=== PATIENT | male | born 1985 | race Caucasian/White ===

== ENCOUNTER 2025-04-18 19:37 | Emergency (ER) | payer BC, SELFPAY ==
--- OUTSIDE RECORDS SUMMARY | 2025-04-18 19:44 | XMS_ITS | Clinical Summary ---
Author Organization [facility] Address [address] [place] [id number] Care Team Providers Care Weigher Alloy Name Role Phone Nicole Pollard MD Primary Care Provider + Allergies No known active allergies Medications No known medications Active Problems Problem Noted Date Diagnosed Date Allergic rhinitis 12/24/2023 Immunizations Immunization Administration Dates Next Due Hepatitis A (Havrix [address]) 09/09/2011,2010 Influenza (FluMist) 02/19/2011 Influenza (Generic) 03/21/2014 Meningococcal (Menactra) 02/19/2011 Polio IPV (Ipol) 02/19/2011 Tdap (Boostrix) 12/24/2023 Tdap (Generic) 02/19/2011 Typhoid (Typhim ) 07/29/2011 Family History Medical History Relation Comments No Known Problems Brother Hyperlipidemia Father No Known Problems Mother No Known Problems Sister Relation Status Comments Brother Alive Father Alive Mother Alive Sister Alive Social History Tobacco Use Types Packs/Day Years Used Date Smoking Tobacco: Never Smokeless Tobacco: Never Alcohol Use Standard Drinks/Week Comments Yes 4 (1 standard drink = 0.6 oz pur e alcohol) Sex and Gender Information Value Date Recorded Sex Assigned at Not on file Legal Sex Male 7:16 PM CDT Gender Identity Not on file Sexual Orientation Not on file Last Filed Vital Signs Vital Sign Reading Time Taken Comments Blood Pressure 131/76 12/24/2023 10:08 AM CDT Pulse 79 12/24/2023 10:08 AM CDT Temperature 36.6 C (97.9 F) 12/24/2023 10:08 AM CDT Respiratory Rate 18 12/24/2023 10:08 AM CDT Oxygen Saturation 98% 12/24/2023 10:08 AM CDT Inhaled Oxygen Concentration - - Weight 102 kg (224 lb 12.8 oz) 12/24/2023 10:08 AM CDT Height 188 cm (6' 2) 12/24/2023 10:08 AM CDT Body Mass Index 28.86 12/24/2023 10:08 AM CDT Plan of Treatment Health Maintenance Due Date Last Done Comments Hepatitis C 2002 Hepatitis B Vaccines (1 of 3 - 19+ 3-dose series) 2003 HPV Vaccines (1 - 3-dose SCD M series) 2011 PHQ-2 (Physician [place]) 06/21/2024 Annual Physical 12/23/2024 12/24/2023 COVID-19 Vaccine ( - 2024-2 6 season) 2025 Influenza Adult (#1) 2025 03/21/2014, 02/19/2011 DTaP, Tdap and Td Vaccines ( 3 - Td or Tdap) 12/23/2033 12/24/2023, 02/19/2011 Meningococcal Vaccine Aged Out 02/19/2011 No neftali abhijit eligible based on patient's age to complete this topic Hepatitis A Vaccines Aged Out 09/09/2011, 02/19/2011 No longer eligible based on patient's age to complete this topic Meningococcal B Vaccine Aged Out No l onger eligible based on patient's age to complete this topic Pneumococcal Vaccine: Pediatrics (0 to 5 Years) and At-Risk Patients (6 to 49 Years) Aged Out No longer eligible b ased on patient's age to complete this topic RSV Immunizations Under 20 Months Aged Out No longer eligible b ased on patient's age to complete this topic Insurance [employer] Member Subscriber Plan / Payer (Ef fective 2021-Present) Name:Shaheed Lau Relation to Subscriber:Self Name:Shaheed Lau Payer ID:Not on file Group ID:Not on file Type:Not on file Address: [address] Care Teams Weigher Alloy Relationship Specialty Start Date End Date Nicole Pollard MD [address] [address] PCP - General FAMILY PRACTICE 12/24/23
[2025-04-18 19:45] VITALS: BP 133/97; PULSE 71; RESP 16; TEMP 36.4; O2SAT 100
[2025-04-18 19:59] LABS: EDUAAPPEAR Clear; EDUABILI Negative (Negative); EDUABLOOD Trace (Negative); EDUACOLOR1 Yellow; EDUAGLUCOSE Negative (Negative); EDUAKETONE Negative (Negative); EDUALEUKO Trace (Negative); EDUANITRATE Negative (Negative); EDUAPH 5.5; EDUAPROTEIN 2+ (Negative); EDUASPGRAVITY 1.030; EDUAUROBILI 0.2
--- NOTE | 2025-04-18 20:05 | ED_ITS ---
HPI - Male Genitourinary General Chief complaint: Urogenital-Male Stated complaint: UTI Time Seen by Provider: 04/18/25 19:50 Source: patient and RN notes reviewed Mode of arrival: ambulatory Limitations: no limitations History of Present Illness HPI Narrative: 39-year-old male patient presents to the [facility] complaining of possible UTI and concerns for STDs. Patient recently unprotected sex and oral sex 2 weeks ago. Does not patient reports increased frequency and lower abdominal pain. Patient has a dysuria, penile discharge, testicular pain or swelling, scrotal pain swelling, abnormal rashes lumps or lesions, fevers, body aches, chills, nausea vomiting, flank pain, back pain, or any other symptoms. Patient denies any significant past medical history. Patient has not tried any [id number] help with symptoms. Patient reports he is circumcised. Related Data Allergies Allergy/AdvReac Type Severity Reaction Status Date / Time No Known Allergies Allergy Verified 04/18/25 19:51 Review of Systems Review of Systems: CONSTITUTIONAL: Denies fever, chills, body aches, or sweats. EYES: Denies visual changes, redness, or discharge. ENT: Denies rhinorrhea, congestion, sore throat, or otalgia. CARDIOVASCULAR: Denies chest pain, palpitations, or edema. RESPIRATORY: Denies cough or dyspnea. GASTROINTESTINAL: Positive for lower abdominal pain. Negative for nausea, vomiting, or diarrhea. GENITOURINARY: Positive for increased frequency. Negative for hematuria dysuria, penile discharge, testicular pain or swelling, scrotal pain or swelling,. SKIN: Denies rash or itching. MUSCULOSKELETAL: Denies back pain, flank pain, joint pain, or myalgia. NEUROLOGIC: Denies headache, numbness, or weakness. PSYCHIATRIC: Denies anxiety or depression. All other systems reviewed are negative, except as documented in HPI. PMFSH Comments At the time of my signature, I reviewed and agree with the nursing past medical, surgical, social, and family history. There is no relevant family history pertinent to the patient complaint. Exam Narrative: GENERAL: This is a well-nourished, well-developed adult, in no apparent distress. They are non ill-appearing, nontoxic appearing. HEAD: normocephalic, atraumatic. EYES: Sclera clear/white. Vision is grossly intact. Conjunctiva normal bilaterally. Extraocular movements intact. EARS: External ears normal,Hearing grossly intact. NOSE: External nose normal THROAT: Mucous membranes moist NECK: Normal range of motion CARDIOVASCULAR: Regular rate and rhythm. Normal S1-S2. No clicks, gallops, rubs, murmurs. RESPIRATORY: Respiratory rate normal, respiratory effort nonlabored, no respiratory distress. Lung sounds clear to auscultation throughout. Lung sounds equal bilaterally. No adventitious lung sounds. GASTROINTESTINAL: Abdomen soft, flat, non-tender, nondistended. Bowel sounds are active. No hepato-splenomegaly, or palpable masses. No guarding or rigidity. No rebound tenderness. GENITOURINARY: Patient declined SKIN: warm, Dry, intact with no suspicious lesions or rash, good texture and turgor. NEURO: awake, alert, and oriented to person, place and time. There were no obvious focal neurologic abnormalities. EXTREMITIES: No joint tenderness, effusion, or edema noted. BACK: Nontender without deformity. No CVA tenderness. Course Course Emergency Course: Portions of this record may have been created with voice recognition software Level of Care: Express Care Visit Vital Signs Vital signs: Vital Signs Temperature 97.5 F L 04/18/25 19:45 Pulse Rate 71 04/18/25 19:45 Respiratory Rate 16 04/18/25 19:45 Blood Pressure 133/97 H 04/18/25 19:45 Pulse Oximetry 100 04/18/25 19:45 Oxygen Delivery Room Air 04/18/25 19:45 Temperature 97.5 F L 04/18/25 19:45 Pulse Rate 71 04/18/25 19:45 Respiratory Rate 16 04/18/25 19:45 Blood Pressure 133/97 H 04/18/25 19:45 Pulse Oximetry 100 04/18/25 19:45 Oxygen Delivery Room Air 04/18/25 19:45 MDM - Male Genitourinary MDM Narrative Medical decision making narrative: Urine dipstick with 1+ leukocytes and trace blood. Patient symptoms are suspicious for UTI. Urine culture pending. Urine chlamydia, gonorrhea, Trichomonas are pending. Patient is having no discharge, penile pain, testicle or scrotal pain/swelling, no suspicious lesions or rashes to his genitals. No peritoneal findings, no abdominal tenderness. Go ahead and treat empirically with Bactrim for UTI will wait for treatment for STDs until cultures result. Discussed physical exam findings. Advised supportive measures and signs/symptoms to go to the ER. Pt is appropriate for outpt treatment and f/u. Differential Diagnosis Differential diagnosis: Likely urinary tract infection, urethritis and other (STD) Lab Data Attestation: I reviewed the patient's lab results. Labs: Lab Results 04/18/25 Range/Units 19:47 POC Urine Color Yellow POC Urine Clarity Clear POC Urine pH 5.5 POC Ur Specif [place] 1.030 POC Urine Protein 2+ (Negative) POC Ur Glucose (UA) Negative (Negative) POC Urine Ketones Negative (Negative) POC Urine Blood Trace (Negative) POC Urine Nitrite Negative (Negative) POC Urine Bilirubin Negative (Negative) POC Urine Urobilinogen 0.2 POC U Leukocyte Esteras Trace (Negative) Discharge Plan Discharge Clinical Impression: Concern about STD in male without diagnosis Urinary tract infection Qualifiers: Urinary tract infection type: site unspecified Hematuria presence: with hematuria Qualified Code(s): N39.0 - Urinary tract infection, site not specified Patient Disposition: Home Condition: Stable Instructions: Antibiotic Form, Sexually Transmitted Diseases (ED), Urinary Tract Infection in Men (ED) Additional Instructions: ?Your urine sample has been sent off to test for gonorrhea, chlamydia, and trichomonas infections. ?These tests can take up to 1-3 days to come back. You Will be notified the results once they have resulted. Please remain abstinent until you know your results or have completed full treatment for an STD. Take the antibiotic as prescribed The urine will be sent of for a culture to identify what type of bacteria is causing your infection. If the culture shows that the antibiotic will not get rid of your infection, you will be notified and a new antibiotic will be called in for you. Increase water intake you will need to follow up with your PCP 3-5 days. Go to the ER for any worsening symptoms, abdominal pain, fevers, testicular pain or swelling, nausea, vomiting, or any other concerns Patient Language: Turkmen Prescriptions: New sulfamethoxazole-trimethoprim [Bactrim DS] 800-160 mg tablet 1 tablet PO Q12H 7 Days Qty: 14 0RF Follow-up/Referrals: UNKNOWN,DOCTOR [Primary Care Provider] Time of Disposition: 20:04
[2025-04-19 20:18] LABS: Trichomonas Vag PCR NOT DETECTED (NOT DETECTE)
== END 2025-04-18 20:07 | disposition home or self-care (01) ==
DX: N39.0 Urinary tract infection, site not specified (principal); Z20.2 Contact with and (suspected) exposure to infections with a predominantly sexual mode of transmission
CPT/HCPCS: 81003; 87086; 87491; 87591; 87661; 99203; G0463

== ENCOUNTER 2025-05-07 13:50 | Outpatient (CLI) | payer BC, SELFPAY ==
--- NOTE | ~2025-05-07 | US_ITS ---
EXAMINATION: High resolution ultrasound scrotum with Doppler: DATE: 05/07/2025. INDICATION: Left scrotal pain. Left inguinal pain. No history of trauma. TECHNIQUE: High resolution ultrasound of the scrotum including the groin was performed with Doppler. COMPARISON: None. FINDINGS: No intratesticular lesions are seen at this side. Normal and symmetric color flow is noted on both sides. No extratesticular masses are seen. No hydrocele is seen. No scrotal wall abnormalities are seen. Ultrasound examination of the groins revealing no evidence of lymphadenopathy or aneurysm. IMPRESSION: 1. No ultrasound abnormalities of the testes. Normal perfusion of both testes. 2. No evidence of extratesticular mass. No evidence of hydrocele. 3. No inguinal adenopathy of space occupying lesions in the groins. Reviewed, dictated and finalized at location [facility]. [facility]
--- NOTE | ~2025-05-07 | CT_ITS ---
EXAM/PROCEDURE: CT abdomen pelvis wo con HISTORY: testicular pain / lower abd pain COMPARISON: None available. TECHNIQUE: Noncontrast CT of the abdomen and pelvis FINDINGS: The visualized portions of the lower chest appear normal. The bowel gas pattern is nonobstructive with no free air free fluid or pneumatosis seen. No bulky mesenteric or retroperitoneal lymphadenopathy or masses. Scattered nonpathologic sized mesenteric lymph nodes are present especially in the right lower quadrant. Appendix aorta and gallbladder all within normal size. No gross CT evidence of acute pancreatitis or cholecystitis. No hydroureteronephrosis. No urolithiasis seen. Urinary bladder appears grossly normal for technique. Slightly enlarged appearance of the prostate gland. Stomach is unopacified and nondistended but appears grossly normal. Approximately 15% chronic appearing anterior compression fracture of L2. Mild multilevel degenerative changes throughout the lumbar spine. Extra peritoneal soft tissues are unremarkable. IMPRESSION: 1. Directed noncontrast CT of the abdomen and pelvis demonstrating no acute surgical abnormality. Scattered mesenteric lymph nodes noted which could be associated with mesenteric adenitis. 2. Chronic appearing 15% anterior compression fracture of L2. Reviewed, dictated and finalized at location A. T [facility] IMPRESSION: 1. Directed noncontrast CT of the abdomen and pelvis demonstrating no acute thomas gical abnormality. Scattered mesenteric lymph nodes noted which could be associ ated with mesenteric adenitis. 2. Chronic appearing 15% anterior compression fracture of L2.
== END 2025-05-07 13:51 | disposition home or self-care (01) ==
LOC: MICIMG 13:51
PROVIDERS: PCP Nurse Practitioner; Visit Provider Nurse Practitioner
DX: I88.0 Nonspecific mesenteric lymphadenitis (principal); S32.020S Wedge compression fracture of second lumbar vertebra, sequela; X58.XXXS Exposure to other specified factors, sequela
CPT/HCPCS: 74176; 76870; 93976